=== PATIENT | female | born 1970 | race Caucasian/White ===

== ENCOUNTER 2025-01-31 06:26 | Day surgery (SDC) | payer BC, SELFPAY | END 2025-01-31 10:05 | disposition home or self-care (01) | LOC: GI 06:26 | PROVIDERS: ATTENDING PHYSICIAN Internal Medicine Gastroenterology | DX: Z12.11 Encounter for screening for malignant neoplasm of colon (principal); D17.5 Benign lipomatous neoplasm of intra-abdominal organs; K63.5 Polyp of colon; K64.8 Other hemorrhoids; R12 Heartburn; K21.9 Gastro-esophageal reflux disease without esophagitis; Z86.0100 Personal history of colon polyps, unspecified; Z98.84 Bariatric surgery status; Z98.0 Intestinal bypass and anastomosis status | CPT/HCPCS: 45380; 43239; 88305 ==